=== PATIENT | female | born 1945 | race Caucasian/White ===

== ENCOUNTER 2018-08-05 07:44 | Emergency (ER) | payer OTHER ==
--- NOTE | 2018-08-05 08:23 | RAD REPORT ---
EXAM DESCRIPTION: CT - Ct Stroke Brain Wo Cont - 08/05/2018 8:14 am CLINICAL HISTORY: Acute stroke symptoms, dizziness, extremity weakness CLINICAL HISTORY: None. TECHNIQUE: Axial 5 millimeter thick images of the head were obtained without IV contrast. All CT scans are performed using dose optimization technique as appropriate and may include automated exposure control or mA/KV adjustment according to patient size. FINDINGS: No intracranial hemorrhage, mass, or cerebral edema. No acute cortical based infarction id entifiable. Patient has mild to moderate atrophy and chronic ischemic change. Ventricles are in propo rtion to volume loss. Physiologic and arterial calcifications are present. Gibson matter-white matter d ifferentiation is preserved. Visualized portions of the mastoid air cells, paranasal sinuses, and orbits are unremarkable. Findings telephoned to doctor Efra 8:11 a.m. IMPRESSION: No CT evidence of acute intracranial process. Atrophy and chronic ischemic changes are present. Chronic ischemic change can potentially mask nonhem orrhagic acute CVA. Followup MR imaging can be performed as warranted.
[2018-08-05 08:25] LABS: Absolute Lymphocytes (CBC) 1.7 K/uL (0.7-4.9); Absolute Monocytes 0.3 K/uL (0.1-1.3); Absolute Neutrophil 3.2 K/uL (1.8-8.0); Basophils % 1.1 % (0-1.3); Eosinophils % 5.2 % (0-4.4); Hematocrit 35.6 % (36.0-45.0); Lymphocytes % 30.4 % (15.3-44.8); MCH 26.9 pg (27.0-35.0); MCV 81.4 fL (80-100); MPV 8.7 fL (7.6-11.3); Monocytes % 6.2 % (3.3-12.3); RBC Red Blood Cell Count 4.38 M/uL (3.86-4.86)
[2018-08-05 08:29] LABS: Protime INR 0.92
[2018-08-05 08:48] LABS: ALT/SGPT 25 U/L (12-78); AST/SGOT 20 U/L (15-37); Albumin 3.7 g/dL (3.4-5.0); Alkaline Phosphatase 109 U/L (45-117); BUN Blood Urea Nitrogen 15 mg/dL (7-18); Bicarbonate 29 mmol/L (21-32); Bilirubin Direct < 0.1 mg/dL (0-0.2); Bilirubin Total 0.3 mg/dL (0.2-1.0); C-Reactive Protein < 2.90 mg/L (<3.00); Glucose Level 125 mg/dL (74-106); Magnesium 2.5 mg/dL (1.8-2.4); NT PRO-BNP 56 pg/mL (<125); Potassium 4.5 mmol/L (3.5-5.1); Sodium Level 139 mmol/L (136-145); Troponin (Emerg Dept Use Only) < 0.02 ng/mL (0.0-0.045)
[2018-08-05] MEDS ORDERED: ASPIRIN 81 MG CHEWABLE TABLET ONE (08:51)
[2018-08-05] MEDS ORDERED: MECLIZINE HCL 12.5 MG TAB ONE (08:51)
[2018-08-05] MEDS ORDERED: NA CHLORIDE 0.9% 1,000 ML ONE (08:51)
[2018-08-05] MEDS ORDERED: FOLIC ACID 5 MG/ML VIAL ONE (08:52)
--- NOTE | 2018-08-05 09:01 | ER ---
Nurse's Notes [facility] Name: Renetta Dee Age: 73 yrs Sex: Female : 1945 Arrival Date: 08/05/2018 Time: 07:47 Bed 8 Private MD: Fred Lima R Diagnosis: Dizziness and giddiness Presentation: 08/05 07:58 Presenting complaint: Dizziness, unsteady gait, and nausea upon waking. Last known hb normal was 11pm last night. Transition of care: patient was not received from another setting of care. Onset of symptoms was August 05, 2018. Risk Assessment: Do you want to hurt yourself or someone else? Patient reports no desire to harm self or others. Initial Sepsis Screen: Does the patient meet any 2 criteria? No. Patient's initial sepsis screen is negative. Does the patient have a suspected source of infection? No. Patient's initial sepsis screen is negative. Care prior to arrival: None. 07:58 Method Of Arrival: Ambulatory hb 07:58 Acuity: COLETTE 2 hb 08:01 An acute neurological deficit is present. Pre-hospital glucose is not applicable to hb this patient. Stroke Activation: Symptom onset > 6 hours Physician: Stroke Attending; Name: ; Notified At: ; Arrived At: Physician: Chief Stroke Resident; Name: ; Notified At: ; Arrived At: Physician: Stroke Resident; Name: ; Notified At: ; Arrived At: Physician: ED Attending; Name: ; Notified At: ; Arrived At: Physician: ED Resident; Name: ; Notified At: ; Arrived At: Historical: - Allergies: 08:26 No Known Allergies; hb - Home Meds: 08:26 Pravachol Oral [Active]; hb - PMHx: 08:26 Hyperlipidemia; hb - PSHx: 08:26 None; hb - Immunization history:: Adult Immunizations up to date. - Social history:: Smoking status: Patient/guardian denies using tobacco. - Ebola Screening: : No symptoms or risks identified at this time. - Family history:: not pertinent. Screenin:25 Abuse screen: Denies threats or abuse. Denies injuries from another. Nutritional hb screening: No deficits noted. Tuberculosis screening: No symptoms or risk factors identified. Fall Risk Total Wright Fall Scale indicates High Risk Score (45 or more points). Fall prevention measures have been instituted. Side Rails Up X 2 Frequent Obs/Assessments Occuring Family Present and informed to notify staff if the need to leave the bedside As available patient and family educated on Fall Prevention Program and Strategies. Assessment: 08:01 Reassessment: Code Stroke called, pt transported to CT. hb 08:11 Reassessment: CT negative per Dr. Caal to Dr. Kraus. hb 08:12 Reassessment: Pt returned from CT. hb 08:13 Reassessment: BGL 123. hb 08:15 Reassessment: 20G to LEFT AC, lab notified blood sent. hb 08:15 T-PA (Activase) Screening: Contraindications: Patient reports onset of signs and sg symptoms of stroke greater than 6 hours ago: Yes. 08:15 Neuro: Reports " feeling off balance". sg 08:17 Patient has been NPO before screening. The patient is alert, and able to follow hb commands. The patient does not exhibit slurred or garbled speech. The patient is not exhibiting difficulty speaking. The patient does not exhibit difficulty understanding words. The patient is able to swallow own secretions with no drooling or need for suction. Patient tolerated one teaspoon of water. No drooling, immediate coughing, gurgling, or clearing of the throat was noted. The patient tolerated 90mL of water. No drooling, immediate coughing, gurgling, or clearing of the throat was noted. The patient passed the bedside swallow screening. Oral medications may be given as ordered. Contact Physician for further diet orders. Provider notified of bedside swallow screening results: Kel Kraus MD. Vital Signs: 08:00 BP 159 / 88; Pulse 88; Resp 16; Temp 98.2; Pulse Ox 100% on R/A; Pain 0/10; hb 08:30 BP 129 / 90; Pulse 52 MON; Resp 17; Pulse Ox 98% on R/A; sg 09:30 BP 133 / 81; Pulse 59; Resp 17; Pulse Ox 100% on R/A; sg NIH Stroke Scale Scores: 08:15 NIHSS Score: 0 sg 08:29 NIHSS Score: 0 [facility] ED Course: 07:47 Patient arrived in ED. sb2 07:48 Fred Lima MD is Private Physician. sb2 07:56 Kel Kraus MD is Attending Physician. mariam 08:15 CT Stroke Brain w/o Contrast In Process Unspecified. EDMS 08:15 Inserted saline lock: 20 gauge in left antecubital area, using aseptic technique. Blood hb collected. 08:15 No provider procedures requiring assistance completed. sg 08:16 Patient has correct armband on for positive identification. Placed in gown. Bed in low hb position. Call light in reach. Side rails up X2. binman on. Pulse ox on. NIBP on. 08:20 Triage completed. hb 08:21 Arm band placed on right wrist. hb 08:47 Oz Livingston, RN is Primary Nurse. sg 08:54 EKG done, by ED staff, reviewed by Kel Kraus MD. jb1 09:16 US Carotid Artery Bilateral In Process Unspecified. EDMS 09:16 Ultrasound completed. Patient tolerated well. sg3 09:24 XRAY Chest (1 view) In Process Unspecified. EDMS 11:20 Patient transferred, IV remains in place. intact, No redness/swelling at site. sg Administered Medications: 08:40 Drug: foLIC Acid 1 mg Route: IVPB; Site: left antecubital; sg 08:41 Drug: NS 0.9% 1000 ml Route: IV; Rate: 1 bolus; Site: left antecubital; sg 08:42 Drug: Meclizine 50 mg Route: PO; sg 09:30 Follow up: Response: No adverse reaction; No change in condition sg 08:45 Drug: Aspirin Chewable Tablet 324 mg Route: PO; sg 09:20 Follow up: Response: No adverse reaction sg Point of Care Testing: Blood Glucose: 08:13 Blood Glucose: 123 mg/dL; hb Ranges: Outcome: 08:58 ER care complete, transfer ordered by . [facility] 11:02 Transferred Note: report called to Lola Dumont RN sg 12:12 Patient left the ED. sg NIH Stroke Scale - NIH Stroke Score Date: 08/05/2018 Time: 08:15 Total Score = 0 1a. Level of Consciousness (LOC) - 0(Alert) 1b. Level of Consciousness (LOC) (Year \\T\\ Age) - 0(Both) 1c. LOC Commands (Open \\T\\ Closes Eyes/[employer]) - 0(Both) 2. Best Gaze (Lateral Gaze Paresis) - 0(Normal) 3. Visual Field Loss - 0(No visual loss) 4. Facial Palsy - 0(Normal) 5a. Left Arm: Motor (10-second hold) - 0(No drift) 5b. Right Arm: Motor (10-second hold) - 0(No drift) 6a. Left Leg: Motor (5-second hold - always test supine) - 0(No drift) 6b. Right Leg: Motor (5-second hold - always test supine) - 0(No drift) 7. Limb Ataxia (finger/nose \\T\\ heel/campbell - test with eyes open) - 0(Absent) 8. Sensory Loss (pinprick arms/legs/face) - 0(Normal) 9. Best Language: Aphasia (description/naming/reading) - 0(No aphasia) 10. Dysarthria (speech clarity - read or repeat words) - 0(Normal) 11. Extinction and Inattention (visual/tactile/auditory/spatial/personal) - 0(No abnormality) Initials: NIH Stroke Scale - NIH Stroke Score Date: 08/05/2018 Time: 08:29 Total Score = 0 1a. Level of Consciousness (LOC) - 0(Alert) 1b. Level of Consciousness (LOC) (Year \\T\\ Age) - 0(Both) 1c. LOC Commands (Open \\T\\ Closes Eyes/[employer]) - 0(Both) 2. Best Gaze (Lateral Gaze Paresis) - 0(Normal) 3. Visual Field Loss - 0(No visual loss) 4. Facial Palsy - 0(Normal) 5a. Left Arm: Motor (10-second hold) - 0(No drift) 5b. Right Arm: Motor (10-second hold) - 0(No drift) 6a. Left Leg: Motor (5-second hold - always test supine) - 0(No drift) 6b. Right Leg: Motor (5-second hold - always test supine) - 0(No drift) 7. Limb Ataxia (finger/nose \\T\\ heel/campbell - test with eyes open) - 0(Absent) 8. Sensory Loss (pinprick arms/legs/face) - 0(Normal) 9. Best Language: Aphasia (description/naming/reading) - 0(No aphasia) 10. Dysarthria (speech clarity - read or repeat words) - 0(Normal) 11. Extinction and Inattention (visual/tactile/auditory/spatial/personal) - 0(No abnormality) Initials: mariam Signatures: Dispatcher [employer] KALEB Wayne Veto jb1 Oz Livingston RN RN sg Anderson, Corey, MD MD cha Baxter, Heather, RN RN Amber Cardenas sg3 Shiela Estes sb2 Corrections: (The following items were deleted from the chart) 08:26 07:58 Presenting complaint: Dizziness and nausea upon waking. Last known normal hb was 11pm last night hb 08:27 08:15 Reassessment: BGL 123 hb hb
--- NOTE | 2018-08-05 09:01 | EDPHYS ---
Physician Documentation [facility] Name: Renetta Dee Age: 73 yrs Sex: Female : 1945 Arrival Date: 08/05/2018 Time: 07:47 Bed 8 Private MD: Fred Lima R ED Physician Kel Kraus HPI: 08/05 08:29 This 73 yrs old Female presents to ER via Ambulatory with complaints of mariam Dizziness. 08:29 The patient presents with dizziness. Onset: The symptoms/episode began/occurred this mariam morning. Context: occurred at home, occurred while the patient was asleep, just prior to the episode the patient experienced no apparent symptoms. Modifying factors: The symptoms are alleviated by closing eyes, holding head still, the symptoms are aggravated by movement of head, changing position. Associated signs and symptoms: The patient has no apparent associated signs or symptoms. Severity of symptoms: At their worst the symptoms were mild moderate in the emergency department the symptoms have improved moderately. Patient's baseline: Neuro: alert and fully oriented. The patient has not experienced similar symptoms in the past. Historical: - Allergies: 08:26 No Known Allergies; hb - Home Meds: 08:26 Pravachol Oral [Active]; hb - PMHx: 08:26 Hyperlipidemia; hb - PSHx: 08:26 None; hb - Immunization history:: Adult Immunizations up to date. - Social history:: Smoking status: Patient/guardian denies using tobacco. - Ebola Screening: : No symptoms or risks identified at this time. - Family history:: not pertinent. ROS: 08:29 Constitutional: Negative for fever, chills, and weight loss, Eyes: Negative for injury, mariam pain, redness, and discharge, ENT: Negative for injury, pain, and discharge, Neck: Negative for injury, pain, and swelling, Cardiovascular: Negative for chest pain, palpitations, and edema, Respiratory: Negative for shortness of breath, cough, wheezing, and pleuritic chest pain, Abdomen/GI: Negative for abdominal pain, nausea, vomiting, diarrhea, and constipation, Back: Negative for injury and pain, : Negative for injury, bleeding, discharge, and swelling, MS/Extremity: Negative for injury and deformity, Skin: Negative for injury, rash, and discoloration, Psych: Negative for depression, anxiety, suicide ideation, homicidal ideation, and hallucinations, Allergy/Immunology: Negative for hives, rash, and allergies, Endocrine: Negative for neck swelling, polydipsia, polyuria, polyphagia, and marked weight changes, Hematologic/Lymphatic: Negative for swollen nodes, abnormal bleeding, and unusual bruising. 08:29 Neuro: Positive for dizziness. Exam: 08:29 Constitutional: This is a well developed, well nourished patient who is awake, alert, mariam and in no acute distress. Head/Face: Normocephalic, atraumatic. Eyes: Pupils equal round and reactive to light, extra-ocular motions intact. Lids and lashes normal. Conjunctiva and sclera are non-icteric and not injected. Cornea within normal limits. Periorbital areas with no swelling, redness, or edema. ENT: Nares patent. No nasal discharge, no septal abnormalities noted. Tympanic membranes are normal and external auditory canals are clear. Oropharynx with no redness, swelling, or masses, exudates, or evidence of obstruction, uvula midline. Mucous membranes moist. Neck: Trachea midline, no thyromegaly or masses palpated, and no cervical lymphadenopathy. Supple, full range of motion without nuchal rigidity, or vertebral point tenderness. No Meningismus. Chest/axilla: Normal chest wall appearance and motion. Nontender with no deformity. No lesions are appreciated. Cardiovascular: Regular rate and rhythm with a normal S1 and S2. No gallops, murmurs, or rubs. Normal PMI, no JVD. No pulse deficits. Respiratory: Lungs have equal breath sounds bilaterally, clear to auscultation and percussion. No rales, rhonchi or wheezes noted. No increased work of breathing, no retractions or nasal flaring. Abdomen/GI: Soft, non-tender, with normal bowel sounds. No distension or tympany. No guarding or rebound. No evidence of tenderness throughout. Back: No spinal tenderness. No costovertebral tenderness. Full range of motion. Skin: Warm, dry with normal turgor. Normal color with no rashes, no lesions, and no evidence of cellulitis. MS/ Extremity: Pulses equal, no cyanosis. Neurovascular intact. Full, normal range of motion. Neuro: Awake and alert, GCS 15, oriented to person, place, time, and situation. Cranial nerves II-XII grossly intact. Motor strength 5/5 in all extremities. Sensory grossly intact. Cerebellar exam normal. Normal gait. Psych: Awake, alert, with orientation to person, place and time. Behavior, mood, and affect are within normal limits. Vital Signs: 08:00 BP 159 / 88; Pulse 88; Resp 16; Temp 98.2; Pulse Ox 100% on R/A; Pain 0/10; hb 08:30 BP 129 / 90; Pulse 52 MON; Resp 17; Pulse Ox 98% on R/A; sg 09:30 BP 133 / 81; Pulse 59; Resp 17; Pulse Ox 100% on R/A; sg NIH Stroke Scale Scores: 08:15 NIHSS Score: 0 sg 08:29 NIHSS Score: 0 mariam MDM: 07:56 Patient medically screened. [facility] 08:31 Data reviewed: vital signs, nurses notes, lab test result(s), EKG, radiologic studies, [facility] CT scan, plain films. 08/05 08:02 Order name: Basic Metabolic Panel; Complete Time: 08:55 [facility] 08/05 08:02 Order name: CBC with Diff; Complete Time: 08:55 [facility] 08/05 08:02 Order name: LFT's; Complete Time: 08:55 [facility] 08/05 08:02 Order name: Magnesium; Complete Time: 08:55 [facility] 08/05 08:02 Order name: NT PRO-BNP; Complete Time: 08:55 [facility] 08/05 08:02 Order name: PT-INR; Complete Time: 08:55 [facility] 08/05 08:02 Order name: Troponin (emerg Dept Use Only); Complete Time: 08:55 [facility] 08/05 08:02 Order name: XRAY Chest (1 view) [facility] 08/05 08:02 Order name: Sed Rate; Complete Time: 08:55 [facility] 08/05 08:02 Order name: CRP; Complete Time: 08:55 [facility] 08/05 08:02 Order name: CT Stroke Brain w/o Contrast; Complete Time: 08:55 [facility] 08/05 08:28 Order name: US Carotid Artery Bilateral [facility] 08/05 08:02 Order name: EKG; Complete Time: 08:04 [facility] 08/05 08:02 Order name: Cardiac monitoring; Complete Time: 08:36 [facility] 08/05 08:02 Order name: EKG - Nurse/Tech; Complete Time: 08:47 [facility] 08/05 08:02 Order name: IV Saline Lock; Complete Time: 08:46 [facility] 08/05 08:02 Order name: Labs collected and sent; Complete Time: 08:46 [facility] 08/05 08:02 Order name: O2 Per Protocol; Complete Time: 08:36 [facility] 08/05 08:02 Order name: O2 Sat Monitoring; Complete Time: 08:36 [facility] Administered Medications: 08:40 Drug: foLIC Acid 1 mg Route: IVPB; Site: left antecubital; sg 08:41 Drug: NS 0.9% 1000 ml Route: IV; Rate: 1 bolus; Site: left antecubital; sg 08:42 Drug: Meclizine 50 mg Route: PO; sg 09:30 Follow up: Response: No adverse reaction; No change in condition sg 08:45 Drug: Aspirin Chewable Tablet 324 mg Route: PO; sg 09:20 Follow up: Response: No adverse reaction sg Point of Care Testing: Blood Glucose: 08:13 Blood Glucose: 123 mg/dL; hb Ranges: Critical Glucose Levels:Adult <50 mg/dl or >400 mg/dl <40 mg/dl or >180 mg/dl Disposition: 08/05/18 08:[address] [facility]. Diagnosis is Dizziness and giddiness. - Reason for transfer: Higher level of care. - Accepting physician is to [facility], neuro. - Condition is Fair. - Problem is new. - Symptoms have improved. NIH Stroke Scale - NIH Stroke Score Date: 08/05/2018 Time: 08:15 Total Score = 0 1a. Level of Consciousness (LOC) - 0(Alert) 1b. Level of Consciousness (LOC) (Year \T\ Age) - 0(Both) 1c. LOC Commands (Open \T\ Closes Eyes/Transition Rn) - 0(Both) 2. Best Gaze (Lateral Gaze Paresis) - 0(Normal) 3. Visual Field Loss - 0(No visual loss) 4. Facial Palsy - 0(Normal) 5a. Left Arm: Motor (10-second hold) - 0(No drift) 5b. Right Arm: Motor (10-second hold) - 0(No drift) 6a. Left Leg: Motor (5-second hold - always test supine) - 0(No drift) 6b. Right Leg: Motor (5-second hold - always test supine) - 0(No drift) 7. Limb Ataxia (finger/nose \T\ heel/campbell - test with eyes open) - 0(Absent) 8. Sensory Loss (pinprick arms/legs/face) - 0(Normal) 9. Best Language: Aphasia (description/naming/reading) - 0(No aphasia) 10. Dysarthria (speech clarity - read or repeat words) - 0(Normal) 11. Extinction and Inattention (visual/tactile/auditory/spatial/personal) - 0(No abnormality) Initials: genevieve NIH Stroke Scale - NIH Stroke Score Date: 08/05/2018 Time: 08:29 Total Score = 0 1a. Level of Consciousness (LOC) - 0(Alert) 1b. Level of Consciousness (LOC) (Year \T\ Age) - 0(Both) 1c. LOC Commands (Open \T\ Closes Eyes/Transition Rn) - 0(Both) 2. Best Gaze (Lateral Gaze Paresis) - 0(Normal) 3. Visual Field Loss - 0(No visual loss) 4. Facial Palsy - 0(Normal) 5a. Left Arm: Motor (10-second hold) - 0(No drift) 5b. Right Arm: Motor (10-second hold) - 0(No drift) 6a. Left Leg: Motor (5-second hold - always test supine) - 0(No drift) 6b. Right Leg: Motor (5-second hold - always test supine) - 0(No drift) 7. Limb Ataxia (finger/nose \T\ heel/campbell - test with eyes open) - 0(Absent) 8. Sensory Loss (pinprick arms/legs/face) - 0(Normal) 9. Best Language: Aphasia (description/naming/reading) - 0(No aphasia) 10. Dysarthria (speech clarity - read or repeat words) - 0(Normal) 11. Extinction and Inattention (visual/tactile/auditory/spatial/personal) - 0(No abnormality) Initials: mariam Signatures: Dispatcher [employer] Oz Hinojosa RN RN sg Anderson, Corey, MD MD cha Baxter, Heather, RN RN Corrections: (The following items were deleted from the chart) 12:12 08:58 08/05/2018 08:[address] [facility]. sg Diagnosis is Dizziness and giddiness. Reason for transfer: Higher level of care. Accepting physician is to [facility], neuro. Condition is Fair. Problem is new. Symptoms have improved. mariam
--- NOTE | 2018-08-05 10:18 | RAD REPORT ---
EXAM DESCRIPTION: - CP - 08/05/2018 9:18 am CLINICAL HISTORY: Dizziness, syncope COMPARISON: None. TECHNIQUE: Real-time sonographic evaluation of both carotid systems was performed. Gibson scale and Do ppler interrogation were performed with waveform tracing bilaterally. FINDINGS: Normal high resistance waveforms are noted in both external carotid arteries. The common c arotid arteries and internal carotid arteries show normal low resistance waveforms. Minimal plaquing changes in the right carotid bulb are present. No significant luminal narrowing on v isual inspection. No significant plaquing changes on the left. There is no dissection. . Peak systoli c and end diastolic velocity values and the ICA/CCA ratios are in the non-hemodynamically significant range. Antegrade flow seen in both vertebral arteries. Velocity values and ratios were recorded and are retained in the patient's imaging records. IMPRESSION: Minimal right pole bulb plaquing changes. No evidence of a hemodynamically significant stenosis.
--- NOTE | 2018-08-05 11:27 | RAD REPORT ---
EXAM DESCRIPTION: RAD - Chest Single View - 08/05/2018 9:24 am CLINICAL HISTORY: Cough, weakness COMPARISON: March 29, 2018 TECHNIQUE: AP portable chest image was obtained 0818 hours . FINDINGS: No peripheral mass, consolidation or significant failure finding. Patient has chronic inte rstitial lung disease similar to comparison. Lung markings are accentuated by shallow inspiration. Ve ry large hiatal hernia is again noted. Trachea is midline. Heart and vasculature are normal. No measu rable pleural effusion and no pneumothorax. No acute bony abnormality seen. No acute aortic findings suspected. IMPRESSION: Chronic interstitial lung disease similar to comparison. No acute findings.
--- NOTE | 2018-08-06 07:42 | EKG ---
Test Date: 2018-08-05 Test Time: 08:43:00 Inventory Control Specialist: LOLIS MEASUREMENT RESULTS: Intervals: Rate: 53 AK: 148 QRSD: 84 QT: 456 QTc: 427 Bend: P: 9 AK: 148 QRS: 48 T: 60 INTERPRETIVE STATEMENTS: Sinus bradycardia Otherwise normal ECG Compared to ECG 07/14/1997 11:50:00 No significant changes Electronically Signed On 08-06-18 07:40:26 THREAD MILLING MACHINE SET UP OPERATOR by Tyler Layne
== END 2018-08-05 12:12 | disposition short-term general hospital (02) ==
LOC: ER 07:44
DX: R42 Dizziness and giddiness (principal); E78.5 Hyperlipidemia, unspecified
CPT/HCPCS: 36415; 70450; 71045; 80048; 80076; 82962; 83735; 83880; 84484; 85025; 85610; 85652; 86140; 93005; 93880; 96374; 99285; J7030

== ENCOUNTER → 2023-11-11 | Emergency (ER) | payer OTHER ==
[~2023-11-11] MED LIST: HYDROCODONE/APAP 5/325 MG TAB ONE; MORPHINE 4 MG/ML SYR ONE; ONDANSETRON 4 MG (ODT) TAB ONE
--- NOTE | 2023-11-11 19:42 | RAD REPORT ---
EXAM DESCRIPTION: RAD - Shoulder Right 2 View - 11/11/2023 7:33 pm CLINICAL HISTORY: PAIN COMPARISON: Humerus Right dated 11/11/2023 FINDINGS/IMPRESSION: Impaction fracture of the right proximal humerus involving the surgical neck. T here is mild medial displacement. No dislocation.
--- NOTE | 2023-11-11 19:43 | RAD REPORT ---
EXAM DESCRIPTION: RAD - Humerus Right - 11/11/2023 7:33 pm CLINICAL HISTORY: PAIN COMPARISON: Chest Single View dated 08/05/2018 FINDINGS/IMPRESSION: Surgical neck fracture of the right proximal humerus. No dislocation. No other fractures appreciated.
--- NOTE | 2023-11-11 20:02 | EDPHYS ---
Physician Documentation [facility] Name: Renetta Dee Age: 78 yrs Sex: Female : 1945 Arrival Date: 11/11/2023 Time: 18:22 Bed 18 Private MD: ED Physician Kel Kraus HPI: 11/10 18:32 This 78 yrs old Female presents to ER via Unassigned with complaints of Fall Injury, sb4 Arm Injury. 18:32 Patient states that she tripped and fell on her right arm 1 hour prior to arrival. sb4 Patient states that she cannot move her arm. She denies any head trauma, LOC, or blood thinner use. Has full sensation and strength in her hand. Historical: - Allergies: 18:34 No Known Allergies; nj1 - PMHx: 18:34 Hyperlipidemia; Ulcerative colitis (Unknown); nj1 - Immunization history:: Client reports receiving the 2nd dose of the Covid vaccine. - Social history:: Smoking status: Patient denies any tobacco usage or history of. ROS: 18:32 Constitutional: Negative for fever, chills, and weight loss, sb4 18:32 MS/extremity: Positive for injury or acute deformity, decreased range of motion, deformity, pain, of the right arm, 18:32 All other systems are negative, Exam: 18:32 Constitutional: This is a well developed, well nourished patient who is awake, alert, sb4 and in no acute distress. Head/Face: Normocephalic, atraumatic. Eyes: Extra-ocular motions intact. Periorbital areas with no swelling, redness, or edema. ENT: Mucous membranes moist. Cardiovascular: Regular rate and rhythm with a normal S1 and S2. Respiratory: Lungs have equal breath sounds bilaterally, clear to auscultation and percussion. No rales, rhonchi or wheezes noted. No increased work of breathing, no retractions or nasal flaring. Abdomen/GI: Soft, non-tender, no distension. Skin: Warm, dry with normal turgor. Normal color with no rashes, no lesions, and no evidence of cellulitis. Neuro: Awake and alert, GCS 15, oriented to person, place, time, and situation. Motor strength 5/5 in all extremities. Sensory grossly intact. 18:32 Musculoskeletal/extremity: Extremities: noted in the right bicep: decreased ROM, deformity, pain, ROM: limited active range of motion, limited passive range of motion, in the right arm, Circulation is intact in all extremities. Pulses: are normal with no appreciated deficits, Perfusion: the extremity is normally perfused throughout, Sensation intact. Vital Signs: 18:25 BP 157 / 61; Pulse 59; Resp 16; Temp 97.6(O); Pulse Ox 100% on R/A; Weight 56.7 kg; nj1 Height 5 ft. 4 in. ; Pain 10/10; 19:30 Pain 8/10; nj1 19:39 BP 136 / 74; Pulse 62; Resp 17; Pulse Ox 97% ; Pain 8/10; nj1 20:00 BP 120 / 72; Pulse 60; Resp 16 S; Pulse Ox 96% on R/A; jw7 18:25 Body Mass Index 21.46 (56.70 kg, 162.56 cm) nj1 18:25 Pain Scale: Adult nj1 19:30 Pain Scale: Adult nj1 19:39 Pain Scale: Adult nj1 MDM: 18:24 Patient medically screened. sb4 18:32 Differential diagnosis: contusion, fracture, sprain, strain. sb4 20:00 Data reviewed: vital signs, nurses notes, radiologic studies, and as a result, I will sb4 discharge patient. Counseling: I had a detailed discussion with the patient and/or guardian regarding the historical points, exam findings, and any diagnostic results supporting the discharge/admit diagnosis, radiology results, the need for outpatient follow up, a orthopedic surgeon, to return to the emergency department if symptoms worsen or persist or if there are any questions or concerns that arise at home. 11/10 18:28 Order name: Humerus Right XRAY; Complete Time: 19:46 sb4 11/10 18:28 Order name: Shoulder Right (2 View) XRAY; Complete Time: 19:46 sb4 11/10 19:47 Order name: Shoulder Immobilizer; Complete Time: 20:05 sb4 Administered Medications: 18:37 Drug: morphine IM 4 mg IM once Route: IM; Site: left deltoid; as6 19:30 Follow up: Pain 8/10 Adult; Response: No adverse reaction; Pain is decreased nj1 18:37 Drug: Ondansetron Oral Disintegrating Tablet Oral Disintegrating Tablet 4 mg PO once as6 Route: PO; 19:30 Follow up: Response: No adverse reaction nj1 20:28 Drug: HYDROcodone-acetaminophen PO 5 mg-325 mg 2 tabs PO once Route: PO; jw7 20:28 Follow up: Response: No adverse reaction jw7 Disposition Summary: 11/11/23 20:01 Discharge Ordered Notes: Location: Home sb4 Problem: new sb4 Symptoms: are unchanged sb4 Condition: Stable sb4 Diagnosis - nondisplaced surgical neck fracture of right proximal humerus sb4 Followup: sb4 - With: Hunter Tan MD - When: As needed - Reason: Further diagnostic work-up, Recheck today's complaints, Re-evaluation by your physician Discharge Instructions: - Discharge Summary Sheet sb4 - Humerus Fracture Treated With Immobilization, [id number] sb4 Forms: - Thank You Letter sb4 - Prescription Opioid Use sb4 - Patient Portal Instructions sb4 - Leadership Thank You Letter sb4 Prescriptions: - acetaminophen-codeine 300-30 mg Oral tablet - take 1 tablet ORAL route every 4 to 6 hours as needed for pain; 20 tablet; sb4 Refills: 0, Product Selection Permitted Signatures: Dispatcher [employer] Brian Cotton RN RN as6 Aiyana Guerrero RN RN jw7 Claire Robert PA-C PAShane sb4 Zamzam Begum RN RN nj1
--- NOTE | 2023-11-11 20:02 | ER ---
Nurse's Notes [facility] Name: Renetta Dee Age: 78 yrs Sex: Female : 1945 Arrival Date: 11/11/2023 Time: 18:22 Bed 18 Private MD: Diagnosis: nondisplaced surgical neck fracture of right proximal humerus Presentation: 11/10 18:25 Chief complaint: Patient states: Tripped and fell on right arm on a "cement" curve. nj1 Unsure if she hit her head but denies LOC, does not take any blood thinners. 18:25 Coronavirus screen: Vaccine status: Patient reports receiving the 2nd dose of the covid nj1 vaccine. Ebola Screen: Patient denies travel to an Ebola-affected area in the 21 days before illness onset. Initial Sepsis Screen: Does the patient meet any 2 criteria? No. Patient's initial sepsis screen is negative. Does the patient have a suspected source of infection? No. Patient's initial sepsis screen is negative. Risk Assessment: Do you want to hurt yourself or someone else? Patient reports no desire to harm self or others. Onset of symptoms was November 11, 2023 at 17:30. 18:25 Method Of Arrival: Ambulatory [facility] 18:25 Acuity: COLETTE 3 nj1 Historical: - Allergies: 18:34 No Known Allergies; nj1 - PMHx: 18:34 Hyperlipidemia; Ulcerative colitis (Unknown); nj1 - Immunization history:: Client reports receiving the 2nd dose of the Covid vaccine. - Social history:: Smoking status: Patient denies any tobacco usage or history of. Screenin:39 [facility] ED Fall Risk Assessment (Adult) History of falling in the last 3 months, as6 including since admission Yes- single mechanical fall (1 pt) Confusion or Disorientation No (0 pts) Intoxicated or Sedated No (0 pts) Impaired Gait No (0 pts) Mobility Assist Device Used No (0 pt) Altered Elimination No (0 pt) Score/Fall Risk Level 0 - 2 = Low Risk Oriented to surroundings, Maintained a safe environment, Educated pt \\T\\ family on fall prevention, incl call for assistance when getting out of bed, Assessed \\T\\ reinforced patient's understanding of fall precautions, Hourly rounding (assess needs \\T\\ fall precautionary measures) done. Abuse screen: Denies threats or abuse. Denies injuries from another. Nutritional screening: No deficits noted. Tuberculosis screening: No symptoms or risk factors identified. Assessment: 18:38 General: Appears in no apparent distress. uncomfortable, Behavior is calm, cooperative. as6 Pain: Complains of pain in right arm. Neuro: Level of Consciousness is awake, alert, obeys commands, Oriented to person, place, time, situation. Cardiovascular: Capillary refill < 3 seconds Patient's skin is warm and dry. Respiratory: Respiratory effort is even, unlabored, Respiratory pattern is regular, symmetrical. GI: No deficits noted. No signs and/or symptoms were reported involving the gastrointestinal system. : No deficits noted. No signs and/or symptoms were reported regarding the genitourinary system. EENT: No deficits noted. No signs and/or symptoms were reported regarding the EENT system. Derm: Skin is intact, is healthy with good turgor. Musculoskeletal: Range of motion: limited in right shoulder and right elbow. 20:00 General: Appears in no apparent distress. comfortable, Behavior is calm, cooperative. jw7 Pain: Complains of pain in right shoulder Pain does not radiate. Pain currently is 3 out of 10 on a pain scale. Quality of pain is described as sharp, Pain began suddenly, Is continuous. Neuro: Level of Consciousness is awake, alert, obeys commands, Oriented to person, place, time, situation. Cardiovascular: Heart tones S1 S2 present Capillary refill < 3 seconds Patient's skin is warm and dry. Respiratory: Airway is patent Trachea midline Respiratory effort is even, unlabored, Respiratory pattern is regular, symmetrical. GI: No deficits noted. No signs and/or symptoms were reported involving the gastrointestinal system. : No deficits noted. No signs and/or symptoms were reported regarding the genitourinary system. EENT: No deficits noted. No signs and/or symptoms were reported regarding the EENT system. Derm: Skin is intact, is healthy with good turgor, Skin is dry, Skin is normal, Skin temperature is warm. Musculoskeletal: Circulation, motion, and sensation intact. Range of motion: limited in right shoulder. 20:28 Reassessment: Patient appears in no apparent distress at this time. No changes from jw7 previously documented assessment. Patient and/or family updated on plan of care and expected duration. Pain level reassessed. Patient is alert, oriented x 3, equal unlabored respirations, skin warm/dry/pink. Vital Signs: 18:25 BP 157 / 61; Pulse 59; Resp 16; Temp 97.6(O); Pulse Ox 100% on R/A; Weight 56.7 kg; nj1 Height 5 ft. 4 in. ; Pain 10/10; 19:30 Pain 8/10; nj1 19:39 BP 136 / 74; Pulse 62; Resp 17; Pulse Ox 97% ; Pain 8/10; nj1 20:00 BP 120 / 72; Pulse 60; Resp 16 S; Pulse Ox 96% on R/A; jw7 18:25 Body Mass Index 21.46 (56.70 kg, 162.56 cm) nj1 18:25 Pain Scale: Adult nj1 19:30 Pain Scale: Adult nj1 19:39 Pain Scale: Adult nj1 ED Course: 18:23 Patient arrived in ED. ra3 18:24 Claire Robert PA-C is PHCP. sb4 18:24 Kel Kraus MD is Attending Physician. sb4 18:29 Brian Pierce, KEISHA is Primary Nurse. as6 18:34 Triage completed. nj1 18:37 Arm band placed on. nj1 18:39 Bed in low position. Call light in reach. Side rails up X2. Pulse ox on. NIBP on. as6 19:35 Humerus Right XRAY In Process Unspecified. EDMS 19:35 Shoulder Right (2 View) XRAY In Process Unspecified. EDMS 20:00 Report received from KEISHA Wyman. jw7 20:00 Provided Education on: Use of call light. jw7 20:01 Hunter Tan MD is Referral Physician. sb4 20:30 No provider procedures requiring assistance completed. Patient did not have IV access jw7 during this emergency room visit. Administered Medications: 18:37 Drug: morphine IM 4 mg IM once Route: IM; Site: left deltoid; as6 19:30 Follow up: Pain 8/10 Adult; Response: No adverse reaction; Pain is decreased nj1 18:37 Drug: Ondansetron Oral Disintegrating Tablet Oral Disintegrating Tablet 4 mg PO once as6 Route: PO; 19:30 Follow up: Response: No adverse reaction nj1 20:28 Drug: HYDROcodone-acetaminophen PO 5 mg-325 mg 2 tabs PO once Route: PO; jw7 20:28 Follow up: Response: No adverse reaction jw7 Medication: 18:39 VIS not applicable for this client. as6 Outcome: 20:01 Discharge ordered by . sb4 20:30 Discharged to home ambulatory, with family, jw7 20:30 Condition: stable 20:30 Discharge instructions given to patient, Instructed on discharge instructions, follow up and referral plans. medication usage, Demonstrated understanding of instructions, follow-up care, medications, Prescriptions given X 1, 20:32 Patient left the ED. jw7 Signatures: Dispatcher [employer] EDMS Brian Pierce RN RN as6 Aiyana Guerrero RN RN jw7 Claire Robert PA-C PAShane parnell4 Zamzam Begum RN RN nj1 Tanisha Delgado ra3 Corrections: (The following items were deleted from the chart) 19:45 19:39 Pulse 62bpm; Resp 17bpm; Pulse Ox 97%; Pain 8/10, Adult; nj1 nj1 20:30 20:28 Reassessment: Patient appears in no apparent distress at this time. Patient jw7 and/or family updated on plan of care and expected duration. Pain level reassessed. Patient is alert, oriented x 3, equal unlabored respirations, skin warm/dry/pink. Patient states symptoms have improved. jw7
[2023-11-11 20:54] VITALS: BP 120/72; TEMP 97.6; O2SAT 96
== END ==
LOC: ER 18:22
DX: S42.214A Unspecified nondisplaced fracture of surgical neck of right humerus, initial encounter for closed fracture (principal); W18.00XA Striking against unspecified object with subsequent fall, initial encounter
CPT/HCPCS: 73060; 73030; 96372; 99284; Q0162